=== PATIENT | male | born 1975 | race Caucasian/White ===

== ENCOUNTER → 2016-12-11 | Outpatient (CLI) | payer BC ==
--- NOTE | 2016-12-11 16:43 | DI ---
XR ANKLE COMPLETE MIN 3VW,12/11/2016 3:33 PM: Clinical History: Acute left ankle pain. Previous Exam: None at this facility. Findings: 3 views of the left ankle are obtained, and demonstrate anatomic alignment without fractures. Surroun ding soft tissues are unremarkable. Impression: No fracture.
--- NOTE | 2016-12-11 16:44 | DI ---
XR FOOT COMPLETE MIN 3VW WB,12/11/2016 3:31 PM: Clinical History: Left foot injury. Previous Exam: Mar 31 2014 Findings: Weightbearing views of the left foot are obtained, and demonstrate anatomic alignment without fractur es. The surrounding soft tissues demonstrate some mild soft tissue thickening. Impression: No fractures.
== END ==
LOC: MOB RAD 15:36
PROVIDERS: ATTEND Physician Assistant Medical
DX: M25.572 Pain in left ankle and joints of left foot (principal); M79.672 Pain in left foot; M21.42 Flat foot [pes planus] (acquired), left foot; F17.220 Nicotine dependence, chewing tobacco, uncomplicated
CPT/HCPCS: 73610; 73630